=== PATIENT | female | born 1945 | race Caucasian/White ===

== ENCOUNTER 2021-05-09 11:00 | Emergency (ER) | payer MEDICARE ==
[~2021-05-09] VITALS: Ht 170.2 cm; Wt 93.0 kg
[2021-05-09] MEDS ORDERED: HYDROCODONE/ACETAMINOPHEN 10/325 MG TAB PO SCH (11:30)
[2021-05-09] MEDS ORDERED: LIDOP TD (12:23)
[2021-05-09] MEDS ORDERED: ALBUHFA IH (12:23)
[2021-05-09] MEDS ORDERED: TRAM50TA4 PO (12:23)
[2021-05-09 13:07] VITALS: BP 144/81
== END 2021-05-09 13:03 | disposition home or self-care (01) ==
LOC: EDH 11:00
DX: S20.212A Contusion of left front wall of thorax, initial encounter (principal); E78.00 Pure hypercholesterolemia, unspecified; I48.91 Unspecified atrial fibrillation; J44.9 Chronic obstructive pulmonary disease, unspecified; Z88.0 Allergy status to penicillin; Z90.49 Acquired absence of other specified parts of digestive tract; W06.XXXA Fall from bed, initial encounter; Y93.89 Activity, other specified; Y92.89 Other specified places as the place of occurrence of the external cause; Y99.8 Other external cause status
CPT/HCPCS: 71101